=== PATIENT | male | born 1965 | race African-American/Black ===

== ENCOUNTER 2019-06-25 07:20 | Emergency (ER) | payer MEDICAID, MEDICARE, OTHER ==
[~2019-06-25] VITALS: Ht 172.7 cm; Wt 95.0 kg
[~2019-06-25 07:20] MED LIST: IBUP-1636 PO
[2019-06-25] MEDS ORDERED: IBUPROFEN 600MG TABLET PO ONE (08:00)
[2019-06-25 08:05] VITALS: BP 125/80
== END 2019-06-25 09:20 | disposition home or self-care (01) ==
LOC: ER 07:20
DX: M25.511 Pain in right shoulder (principal)
CPT/HCPCS: 73030; 99283